=== PATIENT | female | born 1980 | race Caucasian/White ===

== ENCOUNTER → 2019-12-21 | Outpatient (CLI) | payer OTHER ==
[~2019-12-21] MED LIST: FUROSEMIDE INJ 10 MG/ML 4 ML VIAL ONE
--- NOTE | 2019-12-21 10:38 | Diagnostic Imaging Report ---
EXAM: CT Abdomen and Pelvis WITHOUT intravenous contrast INDICATION: Renal calculi COMPARISON: None. TECHNIQUE: Abdomen and pelvis were scanned utilizing a multidetector helical scanner from the lung base to the pubic symphysis without administration of IV contrast. Coronal and sagittal reformations were obtained. IV CONTRAST: None ORAL CONTRAST: None COMPLICATIONS: None RADIATION DOSE: Total DLP: 861.6 mGy*cm Dose modulation, iterative reconstruction, and/or weight based adjustment of the mA/kV was utilized to reduce the radiation dose to as low as reasonably achievable. FINDINGS: LOWER THORAX: Mild dependent subsegmental atelectasis. HEPATOBILIARY: No focal hepatic lesions. No biliary ductal dilatation. The gallbladder appears unremarkable. SPLEEN: No splenomegaly. PANCREAS: No focal masses or ductal dilatation. ADRENALS: No adrenal nodules. KIDNEYS/URETERS: No hydronephrosis or renal calculi. Left internal nephroureteral stent in good position. PELVIC ORGANS/BLADDER: Unremarkable. PERITONEUM / RETROPERITONEUM: No free air or fluid. LYMPH NODES: No lymphadenopathy. VESSELS: Unremarkable. GI TRACT: No distention or wall thickening. BONES AND SOFT TISSUES: Unremarkable. IMPRESSION: No acute findings in the abdomen or pelvis. Specifically, no renal calculi or hydronephrosis. Left internal nephroureteral stent in good position. Signed by: Jaqueline Valdez MD on 12/21/2019 10:35 AM
--- NOTE | 2019-12-21 20:50 | Diagnostic Imaging Report ---
Renal Scan Reason for exam: 39 F with renal calculi and recurrent UTIs. Left ureteral stent. Radiopharmaceutical: Tc-99m MAG3 9.9 mCi IV RAC Report: After administration of the radiopharmaceutical, dynamic images of the kidneys were obtained through 40 minutes. LEFT KIDNEY: Perfusion is prompt. The left kidney is overall reduced in size with irregular contours. Extraction of tracer from the blood pool by the remaining renal parenchyma is normal. Clearance of tracer from the renal parenchyma is prompt. The pelvicaliceal system is not dilated. There is no significant increase in pooling of tracer within the pelvicaliceal system. Drainage of tracer from the pelvicaliceal system is adequate. No significant stasis of tracer is seen in the left ureter. RIGHT KIDNEY: Perfusion is prompt. The kidney has a is mildly reduced in size but retains a reniform shape with smooth contours. Extraction of tracer from the blood pool is normal. Clearance of tracer from the renal parenchyma is prompt. The pelvicaliceal system is not dilated. There is mildly increased pooling of tracer within the pelvicaliceal system. Drainage of tracer from the pelvicaliceal study is adequate. No significant stasis of tracer is seen in the right ureter. DIFFERENTIAL RENAL FUNCTION: Left kidney 22% and right kidney 78% (normal 43-57%). Impression: 1. 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 The extent of scarring accounts for the decreased differential function of 22%. No hydronephrosis is present. No obstruction is suspected. 2. The right kidney is mildly reduced in size but remaining renal parenchyma has normal function. No hydronephrosis is present. No obstruction is suspected. Signed by: Dr. Xochitl Dumont M.D. on 12/21/2019 8:48 PM
== END ==
LOC: NM 09:22
PROVIDERS: ATTEND Urology
DX: N13.30 Unspecified hydronephrosis (principal); T19.1XXA Foreign body in bladder, initial encounter; Z87.442 Personal history of urinary calculi
CPT/HCPCS: 74176; 78707; A9562; J1940

== ENCOUNTER → 2020-01-06 | Day surgery (SDC) | payer OTHER ==
[2020-01-05 10:04] LABS: BASOPHILS % 0.4 % (0.0-1.0); EOSINOPHILS # (AUTO) 0.1 (0.0-0.4); EOSINOPHILS % 0.7 % (0.0-6.0); HEMATOCRIT 37.6 % (34.2-44.1); HEMOGLOBIN 11.8 g/dL (12.0-16.0); LYMPHOCYTES # (AUTO) 1.8 (1.0-3.2); LYMPHOCYTES % 15.8 % (18.0-39.1); MEAN CORPUSCULAR HEMOGLOBIN 25.8 pg (28-32); MEAN CORPUSCULAR HGB CONC 31.4 g/dL (31-35); MEAN CORPUSCULAR VOLUME 82.1 fL (81-99); MONOCYTES # (AUTO) 0.5 (0.2-0.8); MONOCYTES % 4.7 % (4.4-11.3); NEUTROPHILS # (AUTO) 8.8 (2.1-6.9); PLATELET COUNT 437 x10e3/uL (140-360); RED BLOOD COUNT 4.58 x10e6/uL (3.6-5.1); RED CELL DISTRIBUTION WIDTH 14.4 % (11.7-14.4)
[2020-01-05 10:31] LABS: ALANINE AMINOTRANSFERASE 10 IU/L (0-55); ALBUMIN 3.8 g/dL (3.5-5.0); ALBUMIN/GLOBULIN RATIO 0.9 (0.8-2.0); ALKALINE PHOSPHATASE 60 IU/L (40-150); ANION GAP 12.3 mmol/L (8-16); BLOOD UREA NITROGEN 14 mg/dL (7-26); BUN/CREATININE RATIO 14 (6-25); CALCIUM 9.8 mg/dL (8.4-10.2); CARBON DIOXIDE 24 mmol/L (22-29); CHLORIDE 106 mmol/L (98-107); CREATININE, SERUM 0.99 mg/dL (0.57-1.11); EST GLOMERULAR FILTRATION RATE > 60 ML/MIN (60-); GLUCOSE 92 mg/dL (74-118); POTASSIUM 4.3 mmol/L (3.5-5.1); SODIUM 138 mmol/L (136-145)
--- NOTE | 2020-01-05 10:48 | Diagnostic Imaging Report ---
Exam: KUB - 2 views Indication: Preoperative Comparison: CT abdomen and pelvis of 12/21/2019 Findings: Left internal nephroureteral stent in place. No radiographically apparent renal calculi. Nonobstructive bowel gas pattern. No free air. No acute osseous injury. Impression: Left internal nephroureteral stent in place. No radiographically apparent renal calculi. Signed by: Jaqueline Valdez MD on 01/05/2020 10:45 AM
[~2020-01-06] MED LIST changes: +ACETAMINOPHEN 1000 MG/100 ML IV ONE; +B&O 60MG R/S 60 MG SUPP PR ONE; +DEXAMETHASONE SOD PHOS INJ 4 MG/ML VIAL ONE; +FENTANYL CITRATE/PF 100MCG/2 ML INJ ONE; -FUROSEMIDE INJ 10 MG/ML 4 ML VIAL ONE; +GENTAMICIN 80MG/NS 100 ML 200 ML IV ONE; +HYDROCODONE/APAP 10MG-325MG TAB ONE; +IOPAMIDOL 300MG/ML 50ML INFUS..BTL IV ONE; +LEVOFLOXACIN 500MG/D5W 100ML 100 ML IV ONE; +LIDOCAINE HCL 2% LOCAL INJ 5 ML SDV VIAL INJ ONE; +MIDAZOLAM HCL 2 MG/2 ML VIAL ONE; +ONDANSETRON HCL INJ 2MG/ML 2ML 2 MG/ML VIAL ONE; +OXYBUTYNIN CHLOR5 MG PO; +PROPOFOL IV EMULSION 10 MG/ML 20 ML VIAL ONE; +SEVOFLURANE INHAL SOLN 250 ML PEN BTL ONE; +TYLENOL WITH C1 EACH PO; +VITAMIN D33000 UNIT PEG
--- OUTSIDE RECORDS SUMMARY | 2020-01-06 05:57 | XMS REPORT ---
Author Author [facility] Address Unknown Phone Unavailable Care Team Providers Care Anthropometrist Name Role Phone UNKNOWN, REFERRING PP Unavailable TRENT VILLAFUERTE Unavailable Unavailable Problems This patient has no known problems. Allergies, Adverse Reactions, Alerts This patient has no known allergies or adverse reactions. Medications This patient has no known medications. Encounters Start Date/Time End Date/Time Encounter Type Admission Type Attending [facility] Care Department Encounter ID 2017-12-06 18:46:00 2017-12-06 18:46:00 Emergency E [facility] [id number] Results Test Description Test Time Test Comments Text Results Atomic Results Result Comments ABDOMEN-1VIEW (KUB) 2020-01-05 10:44:00 [place] [address] Patient Name: LUI DEL REAL MR #: [id number] : 1980 Age/Sex: 39/F Req #: [id number] Adm Physician: Ordered by: TRENT VILLAFUERTE MD Report #: [id number] Location: OR Room/Bed: Procedure: [id number] DX/ABDOMEN-1VIEW (KUB) Exam Date: 01/05/20 Exam Time: 1020 REPORT STATUS: Signed Exam: KUB - 2 views Indication: Preoperative Comparison: CT abdomen and pelvis of 12/21/2019 Findings: Left internal nephroureteral stent in place. No radiographically apparent renal calculi. Nonobstructive bowel gas pattern. No free air. No acute osseous injury. Impression: Left internal nephroureteral stent in place. No radiographically apparent renal calculi. Signed by: Xiomy Watkins MD on 01/05/2020 10:45 AM Dictated By: XIOMY WATKINS MD 104 Transcribed By: MARY BETH on 01/05/201044 COPY TO: TRENT VILLAFUERTE MD RENAL SCAN W/FLOW FUNCTION 2019-12-21 19:15:00 [place] [address] Patient Name: LUI DEL REAL MR #: [id number] : 1980 Age/Sex: 39/F Req #: [id number] Adm Physician: Ordered by: TRENT VILLAFUERTE MD Report #: [id number] Location: [place] Room/Bed: Procedure: [id number] NM/RENAL SCAN W/FLOW FUNCTION Exam Date: 12/21/19 Exam Time: 1109 REPORT STATUS: Signed Renal Scan Reason for exam: 39 F with renal calculi and recurrent UTIs. Left ureteral stent. Radiopharmaceutical: Tc-99m MAG3 9.9 mCi IV RAC Report: After administration of the radiopharmaceutical, dynamic images of the kidneys were obtained through 40 minutes. LEFT KIDNEY: Perfusion is prompt. The left kidney is overall reduced in size with irregular contours. Extraction of tracer from the blood pool by the remaining renal parenchyma is normal. Clearance of tracer from the renal parenchyma is prompt. The pelvicaliceal system is not dilated. There is no significant increase in pooling of tracer within the pelvicaliceal system. Drainage of tracer from the pelvicaliceal system is adequate. No significant stasis of tracer is seen in the left ureter. RIGHT KIDNEY: Perfusion is prompt. The kidney has a is mildly reduced in size but retains a reniform shape with smooth contours. Extraction of tracer from the blood pool is normal. Clearance of tracer from the renal parenchyma is prompt. The pel vicaliceal system is not dilated. There is mildly increased pooling of tracer within the pelvicaliceal system. Drainage of tracer from the pelvicaliceal study is adequate. No significant stasis of tracer is seen in the right ureter. DIFFERENTIAL RENAL FUNCTION: Left kidney 22% and right kidney 78% (normal 43-57%). Impression: 1. 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 The extent of scarring accounts for the decreased differential function of 22%. No hydronephrosis is present. No obstruction is suspected. 2. The right kidney is mildly reduced in size but remaining renal parenchyma has normal function. No hydronephrosis is present. No obstruction is suspected. Signed by: Dr. Jacqui Dumont M.D. on 12/21/2019 8:48 PM Dictated By: JACQUI DUMONT MD 47 Transcribed By: MARY BETH on 12/21/192047 COPY TO: TRETN VILLAFUERTE MD CT ABDOMEN/PELVIS WO 2019-12-21 10:21:00 [place] [address] Patient Name: LUI DEL REAL MR #: [id number] : 1980 Age/Sex: 39/F Req #: [id number] Adm Physician: Ordered by: TRENT VILLAFUERTE MD Report #: [id number] Location: [place] Room/Bed: Procedure: [id number] CT/CT ABDOMEN/PELVIS WO Exam Date: 12/21/19 Exam Time: 0940 REPORT STATUS: Signed EXAM: CT Abdomen and Pelvis WITHOUT intravenous contrast INDICATION: Renal calculi COMPARISON: None. TECHNIQUE: Abdomen and pelvis were scanned utilizing a multidetector helical scanner from the lung base to the pubic symphysis without administration of IV contrast. Coronal and sagittal reformations were obtained. IV CONTRAST: None ORAL CONTRAST: None COMPLICATIONS: None RADIATION DOSE: Total DLP: 861.6 mGy*cm Dose modulation, iterative reconstruction, and/or weight based adjustment of the mA/kV was utilized to reduce the radiation dose to as low as reasonably achievable. FINDINGS: LOWER THORAX: Mild dependent subsegmental atelectasis. HEPATOBILIARY: No focal hepatic lesions. No biliary ductal dilatation. The gallbladder appears unremarkable. SPLEEN: No splenomegaly. PANCREAS: No focal masses or ductal dilatation. ADRENALS: No adrenal nodules. KIDNEYS/URETERS: No hydronephrosis or renal calculi. Left internal nephroureteral stent in good position. PELVIC ORGANS/BLADDER: Unremarkable. PERITONEUM / RETROPERITONEUM: No free air or fluid. LYMPH NODES: No lymphadenopathy. VESSELS: Unremarkable. GI TRACT: No distention or wall thickening. BONES AND SOFT TISSUES: Unremarkable. IMPRESSION: No acute findings in the abdomen or pelvis. Specifically, no renal calculi or hydronephrosis. Left internal nephroureteral stent in good position. Signed by: Xiomy Watkins MD on 12/21/2019 10:35 AM Dictated By: XIOMY WATKINS MD 1035 Transcribed By: MARY BETH on 12/21/19 1035 COPY TO: TRENT VILLAFUERTE MD FOOT 3 VIEWS 2018-11-17 09:30:[address] [id number] IMAGING REPORTPatient Name: Kulwinder DEL REAL of Service: [id number]: 38 Sex: F Order #: [id number] Room: OPO : 1980 X-Ray Number: [id number] Record Number: [id number] Hospital Number: [id number] Physician: Estela MCDOWELL Physician: SAMANTHA MCDOWELL FOOT 3 VIEWS 11/17/2018 9:09 AMHistory: lt 5th metatarsal fxComparisons: 07/11/2016Findings:There is an incompletely healed transverse fracture through the base of theLEFT 5th metatarsal shaft. This is now slightly displaced and worsenedoverall compared with prior exam. This is consistent with either refractureversus ununited fracture.There is no dislocation.There is no radiopaque foreign body.IMPRESSION:Displaced incompletely healed fracture in the 5th metatarsal with overallworsened alignment compared to prior. This could relate to either ununitedfracture versus refracture through the 5th metatarsal base.Electronically Signed By: Fadi Peck M.D., 11/17/2018 9:27 AMLegally authenticated by JOSEFINA MARQUES 2018-11-17 09:27:50 CT Abdomen and Pelvis w/o Contrast 2018-10-29 10:11:31 Patient: LUI DEL REAL Date/Time10/29/2018 09:49 CSTReason for ExamFlank painReportCT ABDOMEN AND PELVIS W/O CONTRASTDIAGNOSIS: Bilateral flank pain and renal calculiMultiple noncontrast axial tomographic sections were obtained through the abdomen and pelvis. Sagittal and coronal reconstructions were performed. The lung bases are clear. Radiation dose lowering techniques were used with automated exposure control, adjusting the mA according to patient's size.The liver, gallbladder, pancreas, spleen, adrenal glands, retroperitoneum, vasculature, pelvis, appendix and bowel are normal.The right kidney, right ureter and urinary bladder are normal. A 6 mm obstructing calculus is noted in the proximal left ureter with proximal hydroureter and hydronephrosis.IMPRESSION: 6 mm obstructing calculus proximal left ureter. Final Dictated by: MD Gomes Michael JackDictated DT/TM: 10/29/2018 10:06 amSigned by: MD Gomes Michael JackSigned (Electronic Signature): 10/29/2018 10:11 am XR Foot Complete 3+ Views Left 2018-07-21 12:53:50 Patient: LUI DEL REAL Date/Time07/21/2018 12:30 CDTReason for ExamInjuryReportTHE OFFICIAL RADIOLOGY REPORT BEGINS BELOW THIS LINEEXAM: Left foot, 3 views.TECHNIQUE: AP, oblique, and lateral views.HISTORY: Posttraumatic pain, injury.COMPARISON: 05/10/2018.FINDINGS: There is a transverse fracture through the proximal shaft of the 5th metatarsal. No other fracture is seen. Joint spaces are normally maintained.IMPRESSION: Transverse fracture through the proximal shaft of the 5th metatarsal without significant displacement.THE OFFICIAL RADIOLOGY REPORT ENDS ABOVE THIS LINE Final Dictated by: MD Lilliam, Matthias Snowctated DT/TM: 07/21/2018 12:51 pmSigned by: MD Vyas William BerrySigned (Electronic Signature): 07/21/2018 12:53 pm XR CHEST 2 VIEWS 2017-12-06 19:59:58 CHEST 2 VIEWREASON FOR STUDY: Congestion, cough.COMPARISON: None available.COMMENTS:The lungs are clear. There are no pleural abnormalities. The heart andmediastinal contours are within normal limit s. The bony thorax isintact.IMPRESSION:There is no abnormality identified in the chest.
[2020-01-06 08:35] VITALS: BP 125/50
--- NOTE | 2020-01-06 09:47 | Operative Report ---
DATE OF PROCEDURE: 01/06/2020 SURGEON: Chris Paez MD PREOPERATIVE DIAGNOSES: 1. Left indwelling ureteral stent. 2. Left hydronephrosis. 3. Atrophic left kidney. 4. Urinary tract infections. 5. Gross hematuria. 6. History of recurrent left nephrolithiasis. POSTOPERATIVE DIAGNOSES: 1. Left indwelling ureteral stent. 2. Left hydronephrosis. 3. Atrophic left kidney. 4. Urinary tract infections. 5. Gross hematuria. 6. History of recurrent left nephrolithiasis. 7. Dense mid left ureteral stricture. 8. Grade 1 cystocele. 9. Grade 1 rectocele. 10. Urethral hypermobility. OPERATION PERFORMED: 1. Cystourethroscopy with complicated removal of left indwelling ureteral stent (separate procedure performed for the diagnosis of the stent done with separate scope). 2. Left ureteroscopy with dilation of mid ureteral stricture (separate procedure performed for diagnosis of stricture). 3. Radiological services for supervision and interpretation of ureteroscopy. 4. Cystourethroscopy with insertion of left indwelling ureteral stent (separate procedure performed to relieve the hydronephrosis). 5. Cystourethroscopy with right ureteral catheterization and retrograde ureteropyelography (separate performed for the urinary tract infections, history of nephrolithiasis and gross hematuria). 6. Interpretation of retrograde ureteropyelography. 7. Supervision of fluoroscopy, no radiologist present. 8. Pelvic examination under anesthesia. ANESTHESIA: General. COMPLICATIONS: None. CLINICAL SUMMARY: Yuliana Real is a 39-year-old woman, who has had recurrent left-sided kidney stones since age 16. The patient has had prior procedures including ESWL. The patient on June 06, 2019, had a cystoscopy with placement of left indwelling ureteral stent at [facility]. The patient was unable to get that managed for numerous reasons. She eventually presented to our practice, where evaluation revealed atrophic left kidney with no stones present with differential renal function of 22% on the left and 78% on the right. The patient was evaluated on December 24, where she had a urine culture that was negative. She is brought to the operating room for removal of her stent and evaluation. She is aware of the risks of bleeding, infection, injury to adjacent structures, need for additional procedures and elected to proceed. OPERATIVE PROCEDURE IN DETAIL: Informed consent was verified. Yuliana Real was properly identified, taken to the operating room, placed on the cystoscopy table in supine position. Anesthesia was uneventfully begun. The patient was then carefully and gently repositioned in dorsal lithotomy position with all pressure points well padded. Her genitalia were prepared and draped in usual sterile fashion. The 21-[place]ian cystoscope sheath with obturator in place was atraumatically inserted in the patient's urethra and bladder was drained. Panendoscopy of urinary bladder revealed chronic-appearing inflammation throughout the bladder. There was normally positioned and slightly patulous right ureteral orifice. There was an old appearing mildly encrusted stent emerging from the left ureteral orifice with periureteral inflammation. An open-ended ureteral catheter was placed into the right ureter and retrograde ureteropyelograms were performed. A guidewire was then placed alongside the stent and guided to the level of the patient's left kidney. The stent was then grasped completely removed and discarded. Semi-rigid ureteroscope was then placed alongside the guidewire and guided to the level of the mid ureter, where there was a dense stricture. We did not attempt to force the ureteroscope to pass the stricture as it was obvious that this was a chronic and long-standing problem from its appearance. The ureteroscope was withdrawn. Ureteral dilation balloon was then brought up to this region and dilation of the stricture was performed. We could see a waste that popped open upon dilation. Following this, the balloon was deflated and removed and the semi-rigid ureteroscope was then placed alongside the guidewire and guided through this region to the more proximal ureter, which was wide open. Flexible ureteroscope was then placed over the guidewire and guided to the level of the patient's kidney, where panendoscopy revealed some Monty's plaques, but no suspicious lesions, no tumors, and no stones. Some inflammation within the kidney was noted as well, appeared to be chronic. No prior urine was encountered. Guidewire was left in place. The ureteroscope was withdrawn. With cystoscopic fluoroscopic guidance, a left-sided indwelling ureteral stent was then placed, it was coiled in the patient's kidney as well as the patient's bladder. The retaining suture was cut short. Interpretation of retrograde ureteropyelography contrast was instilled in retrograde fashion bilaterally. The right side was unremarkable. There were no tumors. There were no stones. There were no diverticula. Unobstructed drainage was observed fluoroscopically. The left side exhibited chronic appearing hydronephrosis, there was ureteral stricture as mentioned previously in this dictation and the stent was in good position, coiled the patient's kidney as well as the patient's bladder at the end of the case. The patient's bladder was drained, cystoscope was withdrawn. Belladonna and opium suppository were placed revealing a pelvic examination revealed a grade 1 cystocele, grade 1 rectocele, there was urethral hypermobility. No abnormal palpable pelvic masses could be appreciated. There were no obvious mucosal lesions. A belladonna and opium suppository were placed. The patient was uneventfully reversed from anesthesia, taken to recovery room in stable condition. Explicit postop instructions were given. We will plan to return the patient to the operating room after several weeks to remove her stent, re-evaluate this ureteral stricture, hopefully render the patient stent free and stone free. Should the patient require re-stenting, consideration needs to be given to either ureteral reconstruction procedure or a left nephrectomy. The patient was prescribed pain medications, then we increased her oxybutynin 2 to 3 times a day. MD EVERARDO Angel/ASAD /[id number]
== END | disposition home or self-care (01) ==
LOC: OR 05:54
PROVIDERS: ATTEND Urology
DX: Z46.6 Encounter for fitting and adjustment of urinary device (principal); N39.0 Urinary tract infection, site not specified; R35.1 Nocturia; E66.9 Obesity, unspecified; N13.30 Unspecified hydronephrosis; N26.9 Renal sclerosis, unspecified; N20.0 Calculus of kidney; Z96.0 Presence of urogenital implants; J45.909 Unspecified asthma, uncomplicated; K21.9 Gastro-esophageal reflux disease without esophagitis; M19.90 Unspecified osteoarthritis, unspecified site; I10 Essential (primary) hypertension; Z68.41 Body mass index [BMI] 40.0-44.9, adult; Z80.42 Family history of malignant neoplasm of prostate; N26.1 Atrophy of kidney (terminal); R31.0 Gross hematuria; N13.5 Crossing vessel and stricture of ureter without hydronephrosis; N81.10 Cystocele, unspecified; N81.6 Rectocele; N36.41 Hypermobility of urethra; Z88.6 Allergy status to analgesic agent; Z88.2 Allergy status to sulfonamides; Z88.8 Allergy status to other drugs, medicaments and biological substances; Z91.018 Allergy to other foods; Z01.812 Encounter for preprocedural laboratory examination
CPT/HCPCS: 36415; 74018; 74420; 80053; 81025; 83970; 84550; 85025; C1758; C1769; C2617; J1100; J1580; J1956; J2001; J2250; J2405; J3010

== ENCOUNTER → 2020-05-10 | Day surgery (SDC) | payer OTHER ==
[~2020-05-10] MED LIST changes: -ACETAMINOPHEN 1000 MG/100 ML IV ONE; +CRESTOR10 MG PO; -DEXAMETHASONE SOD PHOS INJ 4 MG/ML VIAL ONE; +ETOMIDATE 2 MG/ML 10 ML INJ IV ONE; -FENTANYL CITRATE/PF 100MCG/2 ML INJ ONE; +GENTAMICIN 80MG/NS 100 ML 100 ML IV ONE; -GENTAMICIN 80MG/NS 100 ML 200 ML IV ONE; -HYDROCODONE/APAP 10MG-325MG TAB ONE; +KETOROLAC TROMETHAMINE 30 MG/ML VIAL ONE; -LEVOFLOXACIN 500MG/D5W 100ML 100 ML IV ONE; +MEROPENEM 1GM 100 ML IV ONE; -MIDAZOLAM HCL 2 MG/2 ML VIAL ONE; +TYLENOL #4 PO; +VITAMIN B122500 MCG PO; -VITAMIN D33000 UNIT PEG; +VITAMIN D33000 UNIT PO
[2020-05-10 08:45] VITALS: BP 114/69
--- NOTE | 2020-05-27 11:02 | Operative Report ---
DATE OF PROCEDURE: 05/10/2020 SURGEON: Chris Paez MD PREOPERATIVE DIAGNOSES: 1. Left ureteral stricture. 2. Left indwelling ureteral stent. 3. Urinary tract infections. 4. Microhematuria. POSTOPERATIVE DIAGNOSES: 1. Left ureteral stricture. 2. Left indwelling ureteral stent. 3. Urinary tract infections. 4. Microhematuria. 5. Grade 1 cystocele. 6. Grade 1 rectocele. 7. Urethral hypermobility. OPERATIONS PERFORMED: 1. Cystourethroscopy with right ureteral catheterization and retrograde ureteropyelography (separate procedure performed for the microhematuria and urinary tract infections). 2. Interpretation of retrograde ureteropyelography. 3. Supervision of fluoroscopy, no radiologist present. 4. Cystourethroscopy with complicated removal of left indwelling ureteral stent (separate procedure performed with separate scope for the diagnosis of the stent). 5. Left ureteroscopy with dilation of mid ureteral stricture (separate procedure performed for diagnosis of stricture). 6. Urological services with supervision and interpretation of stricture dilation. 7. Pelvic examination under anesthesia. ANESTHESIA: General. COMPLICATIONS: None. CLINICAL SUMMARY: Yuliana Real is a 39-year-old woman with a longstanding stone history. The patient has a 20% function of her left kidney. She has a left mid ureteral stricture and managed with a stent. The patient's stent has caused her severe discomfort, infections and multiple admissions. The patient was brought for the above procedures. The patient wants her stent left out. The patient understands that should her ureteral stricture persist, then either chronic ureteral stenting or nephrectomy would be indicated. The patient understands that with only 20% function performing a large reconstructive procedure under ureter . The patient understood all these risks and elected to proceed. OPERATIVE PROCEDURE IN DETAIL: Informed consent was verified. Yuliana Real was properly identified, taken to the operating room, placed on the cystoscopy table in supine position. Anesthesia was uneventfully begun. The patient was then carefully gently repositioned in dorsal lithotomy position with all pressure points were well padded. Her genitalia were prepared and draped in usual sterile fashion. The cystoscope sheath with obturator in place was atraumatically inserted into the patient's urethra and bladder was drained. Panendoscopy revealed no suspicious mucosal lesions, no tumors, no stones, and no diverticula. Normally positioned and consecutive ureteral orifices were identified. There was a stent emerging from the left ureteral orifice. A ureteral catheter was used to cannulate the right ureter and retrograde ureteral pyelograms were performed. A guidewire was then placed alongside the stent in the left ureter and guided to the level of the patient's kidney. The stent was then grasped completely, removed and discarded. Semi-rigid ureteroscope was then placed alongside the guidewire and guided to the mid ureter, where there was a stricture. This stricture appeared as a narrowed region with blanching and scarring. We gently dilated across this region utilizing the semi-rigid ureteroscope. Proximal to this region, the ureter was wide open and dilated. A flexible ureteroscope was then placed over the guidewire and guided to the level of the patient's kidney. Panendoscopy revealed Monty's plaques within the left kidneys papilla. There were no suspicious lesions. There were no stones. We carefully re-examined the ureter as we exited. The region where we dilated appeared open at the present time, whether will remain so, remains to be seen. INTERPRETATION OF RETROGRADE URETEROPYELOGRAPHY: Contrast was instilled in retrograde fashion bilaterally. The right side was unremarkable. There were no tumors, no stones, and no diverticula. Unobstructed drainage was observed. There was chronic appearing fullness of the left side. There was some mild calyceal blunting on the left side. For now, there was unobstructed drainage observed fluoroscopically. The patient's bladder was drained. Cystoscope was withdrawn. Pelvic examination revealed a grade 1 cystocele, grade 1 rectocele with urethral hypermobility. No abnormal palpable pelvic masses could be appreciated. There were no obvious mucosal lesions. The patient was then uneventfully reversed from anesthesia and taken to the recovery room in stable condition. There were no complications to the procedure. She tolerated the procedure well. Plans will be to order Lasix renogram to calculate post Lasix half-life as well as follow the patient's differential function. We will plan to follow the patient up in the office as well and on an ongoing basis as well. Chris Paez MD [place]/MODL /[id number]
== END | disposition home or self-care (01) ==
LOC: OR 05:28
PROVIDERS: ATTEND Urology
DX: N13.5 Crossing vessel and stricture of ureter without hydronephrosis (principal); N39.0 Urinary tract infection, site not specified; Z46.6 Encounter for fitting and adjustment of urinary device; N81.10 Cystocele, unspecified; N81.6 Rectocele; N36.41 Hypermobility of urethra; J45.909 Unspecified asthma, uncomplicated; M54.9 Dorsalgia, unspecified; H91.90 Unspecified hearing loss, unspecified ear; E78.5 Hyperlipidemia, unspecified; F41.9 Anxiety disorder, unspecified; Z88.6 Allergy status to analgesic agent; Z88.1 Allergy status to other antibiotic agents; Z88.8 Allergy status to other drugs, medicaments and biological substances; Z01.812 Encounter for preprocedural laboratory examination; Z11.59 Encounter for screening for other viral diseases
CPT/HCPCS: 74420; 81025; 87086; 87186; C1758; C1769; J1580; J1885; J2001; J2405; U0002

== ENCOUNTER → 2020-06-06 | Outpatient (CLI) | payer OTHER ==
[~2020-06-06] MED LIST changes: -B&O 60MG R/S 60 MG SUPP PR ONE; -ETOMIDATE 2 MG/ML 10 ML INJ IV ONE; +FUROSEMIDE INJ 10 MG/ML 4 ML VIAL ONE; -GENTAMICIN 80MG/NS 100 ML 100 ML IV ONE; -IOPAMIDOL 300MG/ML 50ML INFUS..BTL IV ONE; -KETOROLAC TROMETHAMINE 30 MG/ML VIAL ONE; -LIDOCAINE HCL 2% LOCAL INJ 5 ML SDV VIAL INJ ONE; -MEROPENEM 1GM 100 ML IV ONE; -ONDANSETRON HCL INJ 2MG/ML 2ML 2 MG/ML VIAL ONE; -PROPOFOL IV EMULSION 10 MG/ML 20 ML VIAL ONE; -SEVOFLURANE INHAL SOLN 250 ML PEN BTL ONE
--- NOTE | 2020-06-06 17:42 | Diagnostic Imaging Report ---
Renal Scan with Lasix Reason for exam: N13.5 Crossing vessel and stricture of ureter without hydronephrosis. 39 F with renal calculi and recurrent UTIs. Multiple surgeries on left kidney. Recent sharp pain in lower back. Comparison: Prior renal scan 12/21/2019 Radiopharmaceutical: Tc-99m MAG3 10 mCi IV RAC Report: After administration of the radiopharmaceutical, dynamic images of the kidneys were obtained through 40 minutes. Lasix 40 mg was administered intravenously at 10 minutes post injection of the tracer. LEFT KIDNEY: Perfusion is prompt. The left kidney is overall reduced in size with irregular contours. Extraction of tracer from the blood pool by the remaining renal parenchyma is normal. Clearance of tracer from the renal parenchyma is prompt. The pelvicaliceal system is not dilated. There is no significant increase in pooling of tracer within the pelvicaliceal system. Drainage of tracer from the pelvicaliceal system is adequate prior to administration of Lasix. No significant stasis of tracer is seen in the left ureter. RIGHT KIDNEY: Perfusion is prompt. The kidney is mildly reduced in size but retains a reniform shape with smooth contours. Extraction of tracer from the blood pool is normal. Clearance of tracer from the renal parenchyma is prompt. The pelvicaliceal system is not dilated. There is mildly increased pooling of tracer within the pelvicaliceal system. Drainage of tracer from the pelvicaliceal study is prompt and adequate prior to administration of Lasix. No significant stasis of tracer is seen in the right ureter. DIFFERENTIAL RENAL FUNCTION: Left kidney 22% and right kidney 78% (normal 43-57%), previously also left 22% and right 78%. Impression: 1. 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 The extent of scarring accounts for the decreased differential function of 22%. No hydronephrosis is present. No physiologically significant obstruction of the renal collecting system is present. The appearance of the kidney, its drainage pattern and the differential function are unchanged compared to the prior renal scan of 12/21/2019. 2. The right kidney is mildly reduced in size but remaining renal parenchyma has normal function. No hydronephrosis is present. No physiologically significant obstruction of the renal collecting system is present. The appearance of the kidney, its drainage pattern and the differential function are unchanged compared to the prior renal scan of 12/21/2019. Signed by: Dr. Xochitl Dumont M.D. on 06/06/2020 5:39 PM
== END ==
LOC: NM 07:38
PROVIDERS: ATTEND Urology
DX: N13.5 Crossing vessel and stricture of ureter without hydronephrosis (principal)
CPT/HCPCS: 78708; 81025; A9562; J1940